=== PATIENT | male | born 1955 | race Hispanic/Latino ===

== ENCOUNTER 2017-10-12 05:42 | Observation (INO) | payer MEDICARE, OTHER ==
[2017-10-10 10:48] LABS: ANION GAP 16.2 mmol/L (8-16); CALCIUM 10.2 mg/dL (8.4-10.2); CREATININE, SERUM 1.27 mg/dL (0.72-1.25); POTASSIUM 4.2 mmol/L (3.5-5.1)
--- NOTE | 2017-10-10 11:03 | Diagnostic Imaging Report ---
PROCEDURE: X-RAY CHEST, TWO VIEWS COMPARISON: None. INDICATIONS: PRE-OPERATIVE CHEST X-RAY FOR PHIMOSIS SURGERY FINDINGS: Lungs are well-inflated. No focal airspace consolidation, pleural effusion, or pneumothorax. Subsegmental atelectasis in the periphery of the left lower lung. Atherosclerotic calcification of the thoracic aorta with an otherwise normal cardiomediastinal contour. No acute osseous abnormality. CONCLUSION: No acute thoracic abnormality. Dictated by: Vargas Lara M.D. on 10/10/2017 at 11:05 Electronically approved by: Vargas Lara M.D. on 10/10/2017 at 11:05
[~2017-10-12] VITALS: Ht 180.3 cm; Wt 123.9 kg
[~2017-10-12 05:42] MED LIST: AMLODIPINE BESYL5 MG PO; ATORVASTATIN CA20 MG PO; FUROSEMIDE40 MG PO; HYDRALAZINE HCL10 MG PO; KLOR-CON 1010 MEQ; LANTUS 3ML100 UNITS/; LEVETIRACETAM500 MG; SYNJARDY PO; TAMSULOSIN HCL0.4 MG
--- OUTSIDE RECORDS SUMMARY | 2017-10-12 05:44 | XMS REPORT ---
Author Author [facility] Address Unknown Phone Unavailable Care Team Providers Care Outboard Motor Tester Name Role Phone LAURA HARDWICK Unavailable Unavailable Problems This patient has no known problems. Allergies, Adverse Reactions, Alerts This patient has no known allergies or adverse reactions. Medications This patient has no known medications. Results Test Description Test Time Test Comments Text Results Atomic Results Result Comments CHEST 2 VIEWS [place] [address] Patient Name: FLOR SERRANO MR #: [id number] : 1955 Age/Sex: 62/M Req # : [id number] Adm Physician: Ordered by: RASTA CORONADO MD Report #: [id number] Location: OR Room/Bed: Procedure: [id number] DX/CHEST 2 VIEWS Exam Date: 10/10/17 Exam Time: 1052 REPORT STATUS: Signed PROCEDURE: X-RAY CHEST, TWO VIEWS COMPARISON: None. INDICATIONS: PRE-OPERATIVE CHEST X-RAY FOR PHIMOSIS SURGERY FINDINGS: Lungs are well-inflated. No focal airspace consolidation, pleural effusion, or pneumothorax. Subsegmental atelectasis in the periphery of the left lower lung. Atherosclerotic calcification of the thoracic aorta with an otherwise normal cardiomediastinal contour. No acute osseous abnormality. CONCLUSION: No acute thoracic abnormality. Dictated by: Tim Root M.D. on 10/10/2017 at 11:05 Electronically approved by: Tim Root M.D. on 10/10/2017 at 11:05 Dictated By: TIM ROOT MD 1105 Transcribed By: NAHID on 10/10/17 1105 COPY TO: RASTA CORONADO MD
[2017-10-12] MEDS ORDERED: CEFAZOLIN SOD 1 GM VIAL ONE (06:24)
[2017-10-12] MEDS ORDERED: BUPIVACAINE 0.25%/EPI 30ML SDV INJ ONE (07:17)
[2017-10-12] MEDS ORDERED: BUPIVACAINE 0.25% 30ML SDV INJ ONE (07:17)
[2017-10-12] MEDS ORDERED: NEOSTIGMINE 1 MG/ML 10ML VIAL ONE (07:17)
[2017-10-12 13:00] VITALS: BP 178/85
[2017-10-12] MEDS ORDERED: LIDOCAINE HCL 2% LOCAL INJ 5 ML SDV VIAL INJ ONE (14:40)
[2017-10-12] MEDS ORDERED: DEXAMETHASONE SOD PHOS INJ 4 MG/ML VIAL ONE (14:40)
[2017-10-12] MEDS ORDERED: PROPOFOL IV EMULSION 10 MG/ML 20 ML VIAL ONE (14:40)
[2017-10-12] MEDS ORDERED: SEVOFLURANE INHAL SOLN 250 ML PEN BTL ONE (14:40)
[2017-10-12] MEDS ORDERED: ONDANSETRON HCL INJ 2 MG/ML VIAL ONE (14:40)
[2017-10-12] MEDS ORDERED: EPHEDRINE SULFATE INJ 50 MG/10 ML SYR ONE (14:40)
--- NOTE | 2017-10-12 14:48 | History and Physical ---
REFERRING PHYSICIAN: Dr. Chairez. REASON FOR CONSULTATION: Atrial fibrillation. HISTORY OF PRESENT ILLNESS: Mr. Dickson Strange is a pleasant 62-year-old man with history of CVA, reportedly hemorrhagic with no specific details otherwise currently, event in 2016 at [place], hypertension, diabetes mellitus, obesity and dyslipidemia, who is status post outpatient circumcision today. Postoperatively he is noted to have atrial fibrillation with normal ventricular response with paroxysms of AFib alternating with sinus rhythm. He is symptom-free, denies chest pain, shortness of breath, lightheadedness or syncope. He denies any other complaints at this time. REVIEW OF SYSTEMS: Twelve systems reviewed, negative except for as noted above. ALLERGIES: NO KNOWN DRUG ALLERGIES. PAST MEDICAL HISTORY: As per HPI. SOCIAL HISTORY: Former smoker. No alcohol or drugs. FAMILY HISTORY: Significant for hypertension. PHYSICAL EXAMINATION VITAL SIGNS: Blood pressure 147/92, heart rate 78, respiratory rate 18, O2 sat 96% on nasal cannula. GENERAL: No acute distress. Alert. NECK: No JVD. CHEST: Clear to auscultation. CARDIOVASCULAR: Irregular rate and rhythm. Normal S1 and S2. No S3, no S4. No murmurs, no rubs. ABDOMEN: Soft, nontender. EXTREMITIES: No edema. Warm distal extremities. CARDIOVASCULAR MEDICATIONS: Have been reviewed. HOME MEDICATIONS: Have been reviewed. LAB WORK: Has been reviewed. Significant for normal renal function. ASSESSMENT 1. Atrial fibrillation, paroxysmal. 2. History of hemorrhagic stroke, unspecified otherwise. 3. Hypertension and diabetes. 4. Obesity. 5. Status post circumcision, postop day 0. RECOMMENDATIONS 1. At this point not a candidate for short-term anticoagulation given recent surgery. Furthermore, a prior history of hemorrhagic bleeding needs to be further evaluated prior to making further recommendations regarding long-term anticoagulation. I would advise a neurology/neurosurgery consultation to further clarify this. Patient has been offered the option of inpatient evaluation versus outpatient evaluation. At this point in time, they seem inclined to proceed with outpatient evaluation. Will switch amlodipine home medication to metoprolol 25 mg daily, extended-release formulation. 2. Obtain echocardiogram. 3. Further evaluation including stress test advisable and to be performed as outpatient. 4. If a candidate for short-term anticoagulation, can consider a Watchman device then. This can be further discussed as outpatient. Job#: [id number]
[2017-10-12] MEDS ORDERED: FENTANYL CITRATE/PF 100MCG/2 ML INJ ONE (15:08)
[2017-10-12] MEDS ORDERED: INSULIN GLARGINE 100 UNITS/1 ML 3ML PEN SQ PRN (15:15)
[2017-10-12] MEDS ORDERED: INSULIN DETEMIR 100 UNIT/ML PEN SQ PRN (15:30)
[2017-10-12 16:00] VITALS: BP 157/84
[2017-10-12 20:00] VITALS: BP 157/77
--- NOTE | 2017-10-12 20:10 | Diagnostic Imaging Report ---
History:Past brain bleed and stroke Comparison studies:None Technique: Axial images were obtained from the skull base to the vertex. Coronal and sagittal images reconstructed from the axial data. Intravenous contrast: None Findings: Scalp/skull: Right frontal marcus hole chronic deformity. Extra-axial spaces: No masses. No fluid collections. Brain sulci: Mildly prominent. Ventricles: Mild compensatory dilatation. No hydrocephalus. Parenchyma: Chronic left cerebellar infarct predominantly in the left superior cerebellar artery territory. Small cortical-based hypodensity in the anterior aspect of right superior frontal gyrus represents chronic encephalomalacia related to prior vascular insult or trauma. Small gliotic tract of the right frontal lobe from prior ventricular catheter. Moderate supratentorial microvascular ischemic changes. No acute hemorrhage. No midline shift. No mass effect. Sellar/suprasellar region: No abnormalities. Craniocervical junction: Patent foramen magnum. No Chiari one malformation. Incidental findings: Atherosclerotic calcifications in the carotid siphons and distal vertebral arteries. Impression: No acute abnormalities. Chronic findings: Chronic encephalomalacia in left cerebellar hemisphere from prior vascular insult. Focal chronic encephalomalacia in the anterior aspect of right superior frontal gyrus possibly related to prior vascular insult or trauma. Expected postoperative changes from prior right frontal marcus hole possibly for prior ventricular catheter placement. Findings discussed with Dr. Veliz at 6:47PM on 10/12/2017. A preliminary report was given by Neuroradiology fellow at 6:47 PM on 10/12/2017. I have reviewed the study and agree with the findings in the preliminary report. Signed by: Dr. Pauline Trevizo M.D. on 10/12/2017 8:06 PM
[2017-10-12] MEDS ORDERED: ATORVASTATIN 40 MG TAB PO SCH (21:00)
[2017-10-12] MEDS ORDERED: METOPROLOL SUCCINATE 25 MG TAB XL PO SCH (21:00)
[2017-10-12] MEDS ORDERED: TAMSULOSIN HCL 0.4 MG CAP PO SCH (21:00)
--- NOTE | 2017-10-12 21:38 | Consultation ---
DATE OF CONSULTATION: October 12, 2017 NEUROLOGICAL CONSULTATION TIME: 5:40 p.m. REASON FOR CONSULTATION: History of hemorrhagic stroke. This 62-year-old male with history of hypertension, diabetes mellitus, hyperlipidemia, morbid obesity, was admitted for elective circumcision. Postop the patient was evaluated and found to have atrial fibrillation with normal ventricular response, the reason for which cardiovascular workup is in the process, and they want neurological evaluation for opinion of the previous hemorrhagic stroke. The patient is accompanied by his , and apparently in 2015 the patient was hospitalized in [facility] for kidney infection, and then he was feeling dizzy and he fell one day, and they did a CAT scan of the brain and they told him that he probably has a tumor and he was transferred to [facility] with neuro consult and neurosurgical consult, and according to the he was planned to have surgery for the tumor, but then they realized that it was not a tumor, it was a hemorrhagic stroke in the left hemisphere. All this time, the patient was having mild headaches. There was no visual disturbance, no speech or swallowing difficulty. There was no confusion or disorientation. There was no focal weakness or focal paresthesia. The patient underwent ventricular drainage, and then after they removed the drain was transferred to rehab where he was there for about 3-4 weeks, according to the . During this time, the patient was awake, alert, oriented. He was walking around. Speech was clear. There was no swallowing difficulty. At the present time, he is feeling okay. PAST MEDICAL HISTORY: Hypertension, diabetes mellitus, morbid obesity. SOCIAL HISTORY: He is a former smoker. He does not smoke now. He does not drink. He does not do drugs. LIST OF MEDICATIONS: Home medications, he has been on atorvastatin, furosemide, hydralazine, insulin, , potassium chloride. Apparently, the patient does not describe any episode of any seizure. REVIEW OF SYSTEMS: All 12 steps negative except what is described above. GENERAL PHYSICAL EXAMINATION VITAL SIGNS: Blood pressure today 157/84, pulse 72, temperature 96.1. LUNGS: Clear to auscultation. HEART: Regular sinus rhythm. ABDOMEN: Morbid obesity. No abdominal tenderness. EXTREMITIES: Lower extremities no cyanosis, clubbing or edema. NEURO EXAMINATION: He is alert. He is oriented x3. Speech clear. No dysarthria or dysphagia. Cranial nerves: Pupils are both equal and reactive. Extraocular movements were full. Visual field was grossly normal. No facial weakness. Facial sensation normal. Tongue protrudes midline. Motor power: The patient is able to elevate both arms and legs against gravity without any difficulty. Motor strength: Upper extremities, abduction of the arms 5/5. Flexion and extension of the arms 5/5. Dorsiflexion of the wrist 5/5. Finger extension 5/5 bilaterally. Lower extremities: Straight raising of legs 70 degrees bilaterally without discomfort. Flexion of the hips 5/5 bilaterally. Flexion and extension of both knees 5/5. Dorsiflexion of both arms 5/5. Plantar flexion 5/5. Deep tendon reflexes: Triceps, biceps and radials 1+. Knee jerk absent. Ankle jerk absent. Sensory examination: Light touch and pinprick of bilateral lower extremities normal. HEAD: Normocephalic. NECK: Supple. Carotid pulsations were present bilaterally. There were no bruits. LABORATORY DATA: Comprehensive metabolic panel: Sodium 144, potassium 4.2, BUN 30, which is elevated. Creatinine 1.27, elevated. Estimated GFR 57, which is low. Glucose 201. Calcium 10.2. Hematology: Not done. IMAGING: Just chest x-ray which is negative. ASSESSMENT: 1. A 62-year-old male with a history of hemorrhagic stroke in the left hemisphere without any arterial neurological deficit in 2016. 2. Atrial fibrillation, apparently is new. 3. Hypertension. 4. Diabetes mellitus type 2. 5. Obesity. 6. Early peripheral neuropathy. RECOMMENDATIONS: We are going to do a CAT scan of the brain to be sure there is not any indication of any hemorrhagic lesion because of the possibility he is going to have anticoagulation. The CAT scan of the brain is going to be without contrast, and as soon as we have the report tomorrow morning, will discuss with the attending physician. Job#: [id number]
[2017-10-13 00:42] VITALS: BP 131/82
[2017-10-13 04:45] VITALS: BP 154/84
[2017-10-13 08:30] VITALS: BP 165/84
[2017-10-13] MEDS ORDERED: LEVETIRACETAM 500 MG TAB PO SCH (09:00)
[2017-10-13] MEDS ORDERED: TAMSULOSIN HCL 0.4 MG CAP PO SCH (09:00)
[2017-10-13] MEDS ORDERED: POTASSIUM CHLORIDE 10 MEQ TABCR PO SCH (09:00)
[2017-10-13] MEDS ORDERED: FUROSEMIDE 40 MG TAB PO SCH (09:00)
[2017-10-13] MEDS ORDERED: HYDRALAZINE HCL 100 MG TABLET PO SCH (09:00)
[2017-10-13] MEDS ORDERED: SYNJARDY PO SCH (09:00)
--- NOTE | 2017-10-13 11:15 | Progress Note ---
DATE: October 13, 2017 TIME: 10:15 a.m. NEUROLOGICAL PROGRESS NOTE The patient was admitted because of atrial fibrillation. Workup by cardiology is in progress. The patient has a previous history of hemorrhagic stroke. That was in 2016. It required bur hole to drain the blood clot that was on the right side. Neurologic consultation is being requested to be sure the patient has no consequences from the previous hemorrhagic stroke because they want to start anticoagulation. Neurologic examination of the patient was essentially normal, except that he is overweight. We did a CT scan of the brain, which I have reviewed myself. On the CT scan, there is no evidence of any intracranial abnormality except the old left cerebellar infarction and chronic small vessel disease. From the neuro point of view, there is no contraindication if they want to start anticoagulation for his atrial fibrillation. Job#: [id number]
[2017-10-13 11:30] VITALS: BP 151/89
[2017-10-13] MEDS ORDERED: PRADAXA150 MG PO (12:03)
[2017-10-13] MEDS ORDERED: METOPROLOL SUCC25 MG PO (12:04)
[2017-10-13] MEDS ORDERED: TYLENOL WITH C1 EACH PO (12:04)
--- NOTE | 2017-10-13 17:44 | Discharge Summary ---
ADMITTING DIAGNOSES 1. Atrial fibrillation in postoperative period from circumcision. 2. History of stroke. 3. Diabetes mellitus. 4. Hypertension. 5. Dyslipidemia. 6. Remote history of intracranial hemorrhage. DISCHARGE DIAGNOSES 1. Atrial fibrillation in postoperative period from circumcision. 2. History of stroke. 3. Diabetes mellitus. 4. Hypertension. 5. Dyslipidemia. 6. Remote history of intracranial hemorrhage. HOSPITALIZATION SUMMARY: Mr. Strange was admitted for further evaluation of new-onset paroxysmal atrial fibrillation. He had no symptoms at the time while at rest including absence of lightheadedness, chest pain or shortness of breath. Due to a prior history of intracranial hemorrhage, neurology consultation was requested and a CT scan ordered. CT scan did not reveal any evidence of active or recent bleeding with a focal chronic encephalomalacia in the anterior aspect of the right superior frontal gyrus and expected postoperative changes from right frontal bur hole, possibly prior ventricular catheter placement. Per recommendations from neurology, there is no contraindication for initiation of anticoagulation for atrial fibrillation given the patient's elevated risk for thromboembolism. In discussion with the patient and family members, risks and benefits have been extensively discussed. Alternatives for anticoagulation also discussed including warfarin, Pradaxa, Eliquis, Xarelto, Savaysa, with emphasis on reversibility currently available for Pradaxa and warfarin only. After extensive discussion of alternatives, the patient and the family preferred Pradaxa, which has been provided as a prescription. The patient has been advised to follow up in the office for further evaluation including a stress test. His amlodipine has been discontinued and metoprolol initiated. His echocardiogram was reviewed with preserved left ventricular systolic function and no evidence of valvular atrial fibrillation. MEDICATIONS UPON DISCHARGE: Please see medication reconciliation form. FOLLOWUP: With Dr. Watson Oneil in the office in 1 to 2 weeks, with primary provider in 1 to 2 weeks and with urology in 1 to 2 weeks. The patient has been advised to avoid anticoagulation for the following 3 to 5 days until cleared with urology on followup postoperatively. WATSON LIZ MD Job#: [id number]
--- NOTE | 2017-10-14 09:01 | Consultation ---
DATE OF CONSULTATION: No dictation 00:03 seconds. Job#: [id number]
--- NOTE | 2017-10-14 10:17 | Operative Report ---
DATE OF PROCEDURE: October 12, 2017 PREOPERATIVE DIAGNOSES: 1. Phimosis. 2. Postoperative penile pain. POSTOPERATIVE DIAGNOSES: 1. Phimosis. 2. Postoperative penile pain. 3. Atrial fibrillation. PROCEDURES: 1. Dorsal and circumferential ring block of the penis (entirely separate procedure to relieve the postoperative pain, not required for the surgery as the patient underwent general anesthesia). 2. Dorsal slit circumcision (entirely separate procedure for the explicit purpose in this brittle diabetic and allowing him to retract his foreskin and relieve the balanitis). PROCEDURE IN DETAIL: After informed consent was obtained, the patient was taken to the operative suite, placed supine on operative table and underwent general anesthesia by the anesthesia services. Dorsal and circumferential ring block was performed with 0.25% Marcaine. At this time, in the dorsum of the penis, artificial erection was created by placing 2 fingers to the base of the shaft of the penis and pressing the skin. At this time, a horizontal line was made with a marker mimicking the edge of the glans. A line was then drawn perpendicularly to the tip of the foreskin on the dorsum. Utilizing a straight hemostat clamp, this area was then crushed sharply incised, meticulous hemostasis was obtained. The foreskin was retracted. The inner prepuce was then cleaned extensively with Betadine prep. At this time, was cleaned. The wound was then irrigated. The edges were then oversewn with a running chromic gut stitch and the foreskin easily retracted to and fro at the cessation of slit. The wound was dressed. The patient was awakened from anesthesia and transported to recovery room in excellent condition. No untoward effects noted. Of note, in the PACU, the patient developed a symptomatic rate controlled atrial fibrillation. Dr. Oneil of cardiology was consulted. Job#: [id number]
== END 2017-10-13 12:51 | disposition home or self-care (01) ==
LOC: OR 05:42 → IMCU 11:38
PROVIDERS: ADMIT Internal Medicine Cardiovascular Disease; ATTEND Internal Medicine Cardiovascular Disease
DX: I48.0 Paroxysmal atrial fibrillation (principal); Z86.73 Personal history of transient ischemic attack (TIA), and cerebral infarction without residual deficits; E78.5 Hyperlipidemia, unspecified; E11.9 Type 2 diabetes mellitus without complications; I10 Essential (primary) hypertension; Z87.891 Personal history of nicotine dependence; N40.1 Benign prostatic hyperplasia with lower urinary tract symptoms; N13.8 Other obstructive and reflux uropathy; R33.8 Other retention of urine; R39.14 Feeling of incomplete bladder emptying; N47.1 Phimosis; E66.9 Obesity, unspecified; G62.9 Polyneuropathy, unspecified; Z68.38 Body mass index [BMI] 38.0-38.9, adult
CPT/HCPCS: 36415 ×3; 54150; 70450; 71046; 80048; 82948 ×2; 93005 ×2; 93306; G0378 ×2; J0690; J1100; J2001; J2405; J2710